=== PATIENT | male | born 1940 | race Caucasian/White ===

== ENCOUNTER → 2016-11-28 | Outpatient (CLI) | payer OTHER, MEDICARE ==
[~2016-11-28] MED LIST: APIX5TAB PO; ATOR10TA9 PO; BIOT25004 PO; CIPR500T87 PO; DUTA1CPM PO; FURO-93 PO; FURO40TA6 PO; GLUC1CAP48 PO; LISI-167 PO; METH4TAB2 PO; METO25TA35 PO; METO50TA82 PO; MULT-717 PO; NAPR500T8 PO; OMEG-118 PO; POTA20TA14 PO
[2016-11-28 08:00] LABS: ASPARTATE AMINO TRANSFERASE 28 U/L (15-37); BLOOD UREA NITROGEN 13 mg/dL (7-18)
== END | disposition home or self-care (01) ==
LOC: LAB 07:27
PROVIDERS: ATTEND Internal Medicine Cardiovascular Disease
DX: E78.2 Mixed hyperlipidemia (principal); I48.2 Chronic atrial fibrillation; N40.0 Benign prostatic hyperplasia without lower urinary tract symptoms
CPT/HCPCS: 36415; 80053; 80061

== ENCOUNTER → 2016-12-23 | Outpatient (CLI) | payer OTHER, MEDICARE ==
[~2016-12-23] MED LIST changes: +REGADENOSON 0.4 MG/5 ML SYRINGE ONE
== END | disposition home or self-care (01) ==
LOC: CFH 12:05
PROVIDERS: ATTEND Internal Medicine Cardiovascular Disease
DX: Z01.810 Encounter for preprocedural cardiovascular examination (principal)
CPT/HCPCS: 78452; 93017; A9502; J2785

== ENCOUNTER → 2017-01-06 | Outpatient (CLI) | payer OTHER, MEDICARE ==
[~2017-01-06] MED LIST changes: +FURO20TA3 PO; +NAPR500T3 PO; -REGADENOSON 0.4 MG/5 ML SYRINGE ONE
[2017-01-06 09:30] LABS: PATH.CAST-FLAG NOT PRESENT; SPERM-FLAG NOT PRESENT; SRC-FLAG NOT PRESENT; XTAL-FLAG NOT PRESENT; YLC-FLAG NOT PRESENT
[2017-01-06 09:42] LABS: ASPARTATE AMINO TRANSFERASE 54 U/L (15-37); BLOOD UREA NITROGEN 13 mg/dL (7-18)
== END | disposition home or self-care (01) ==
LOC: STAR 07:31
PROVIDERS: ATTEND Neurological Surgery
DX: Z01.818 Encounter for other preprocedural examination (principal); J90 Pleural effusion, not elsewhere classified; I10 Essential (primary) hypertension; M47.12 Other spondylosis with myelopathy, cervical region
CPT/HCPCS: 36415; 71020; 80053; 81003; 85025; 85610; 85730

== ENCOUNTER → 2017-01-18 | Outpatient (CLI) | payer OTHER, MEDICARE | END | disposition home or self-care (01) | LOC: CFH 09:17 | PROVIDERS: ATTEND Internal Medicine | DX: J90 Pleural effusion, not elsewhere classified (principal); J98.11 Atelectasis; Z98.890 Other specified postprocedural states | CPT/HCPCS: 71020 ==

== ENCOUNTER 2017-02-17 05:40 | Inpatient (IN) | payer OTHER, MEDICARE ==
[~2017-02-17] VITALS: Ht 175.3 cm; Wt 74.2 kg
[2017-02-17] MEDS ORDERED: LACTATED RINGERS 1,000 ML IV SCH (06:30)
[2017-02-17 06:31] VITALS: BP 150/88
[2017-02-17] MEDS ORDERED: THROMBIN 5,000 UNIT VIAL TP ONE (06:58)
[2017-02-17] MEDS ORDERED: BACITRACIN 50,000 UNIT ONE (06:58)
[2017-02-17] MEDS ORDERED: VANCOMYCIN 1,000 MG ONE (06:58)
[2017-02-17] MEDS ORDERED: BUPIVACAINE/PF-EPI 0.5% 1:200K ONE (06:58)
[2017-02-17] MEDS ORDERED: FENTANYL PF 100 MCG/2ML ONE ×2 (07:04)
[2017-02-17] MEDS ORDERED: MIDAZOLAM 1 MG/ML, 2ML ONE (07:04)
[2017-02-17] MEDS ORDERED: REMIFENTANIL 2 MG ONE (07:04)
[2017-02-17] MEDS ORDERED: BUPIVACAINE/PF-EPI 0.5% 1:200K INFIL ONE (09:11)
[2017-02-17] MEDS ORDERED: METOPROLOL 1 MG/ML, 5ML IV PRN (09:30)
[2017-02-17] MEDS ORDERED: hydrALAzine 20 MG/ML, 1ML IV PRN (09:30)
[2017-02-17] MEDS ORDERED: MEPERIDINE/PF 25MG/0.5ML IVPush PRN (09:30)
[2017-02-17] MEDS ORDERED: ONDANSETRON 2MG/ML, 2ML IVPush PRN (09:30)
[2017-02-17] MEDS ORDERED: ACETAMINOPHEN 325 MG TABLET PO PRN (09:30)
[2017-02-17] MEDS ORDERED: EPHEDRINE 50 MG/ML, 1ML IVPush PRN (09:30)
[2017-02-17] MEDS ORDERED: HYDROcodone/APAP 7.5-325MG/15ML UDC PO PRN (09:30)
[2017-02-17] MEDS ORDERED: FENTANYL PF 100 MCG/2ML IV PRN (09:30)
[2017-02-17] MEDS ORDERED: HYDROmorphone 1 MG/ML, 1ML IV PRN (09:30)
[2017-02-17] MEDS ORDERED: PROMETHAZINE 25 MG/ML, 1ML IV PRN (09:30)
[2017-02-17] MEDS ORDERED: OXYcodone 5 MG/5 ML ORAL.SOL UDC PO PRN (09:30)
[2017-02-17] MEDS ORDERED: ALBUTEROL SULFATE 2.5 MG/3 ML NPPB PRN (09:30)
[2017-02-17] MEDS ORDERED: LABETALOL 5MG/ML, 20ML IV PRN ×2 (09:30→14:30)
[2017-02-17] MEDS ORDERED: HYDROmorphone 1 MG/ML, 1ML ONE (12:42)
[2017-02-17] MEDS ORDERED: HYDROcodone/APAP 7.5-325MG/15ML UDC ONE (12:43)
[2017-02-17] MEDS ORDERED: hydrALAzine 20 MG/ML, 1ML ONE (12:56)
[2017-02-17] MEDS ORDERED: DIPHENHYDRAMINE 50 MG CAPSULE PO PRN (14:30)
[2017-02-17] MEDS ORDERED: HYDROcodone/APAP 10/325 MG TABLET PO PRN (14:30)
[2017-02-17] MEDS ORDERED: PROMETHAZINE 25 MG/ML, 1ML IM PRN (14:30)
[2017-02-17] MEDS ORDERED: MAGNESIUM HYDROXIDE 8%, 30ML UDC PO PRN (14:30)
[2017-02-17] MEDS ORDERED: ONDANSETRON 2MG/ML, 2ML IV PRN (14:30)
[2017-02-17] MEDS ORDERED: METHOCARBAMOL 750 MG TABLET PO PRN (14:30)
[2017-02-17] MEDS ORDERED: BISACODYL 10 MG SUPP PR PRN (14:30)
[2017-02-17] MEDS ORDERED: morphine SULFATE 10 MG/ML, 1ML IV PRN (14:30)
[2017-02-17] MEDS ORDERED: DIPHENHYDRAMINE 50 MG/ML, 1ML IVPush PRN (14:30)
[2017-02-17] MEDS ORDERED: DIPHENHYDRAMINE 50 MG/ML, 1ML IM PRN (14:30)
[2017-02-17 14:36] VITALS: BP 132/98
[2017-02-17] MEDS: NS + 20MEQ KCL 1,000 ML IV SCH (15:16)
[2017-02-17] MEDS ORDERED: HYDROmorphone 2 MG/ML, 1ML IVPush PRN (16:00)
[2017-02-17] MEDS ORDERED: HYDROmorphone 2MG TABLET PO PRN (16:00)
[2017-02-17] MEDS ORDERED: DEXAMETHASONE 4 MG/ML, 1ML ONE (16:36)
[2017-02-17] MEDS ORDERED: SUCCINYLCHOLINE 20 MG/ML, 10ML ONE (16:36)
[2017-02-17] MEDS ORDERED: ROCURONIUM 10 MG/ML ONE (16:36)
[2017-02-17] MEDS ORDERED: PROPOFOL 10 MG/ML, 20ML ONE (16:36)
[2017-02-17] MEDS ORDERED: PROPOFOL 10 MG/ML, 50ML ONE (16:36)
[2017-02-17] MEDS ORDERED: CEFAZOLIN 1,000 MG ONE (16:36)
[2017-02-17] MEDS: CEFAZOLIN PMX 1GM/50ML 50 ML IVPB SCH (17:01)
[2017-02-17] MEDS ORDERED: DIAZEPAM 5 MG TABLET PO PRN (17:30)
[2017-02-17] MEDS ORDERED: CYCLOBENZAPRINE 10 MG TABLET PO PRN (17:30)
[2017-02-17] MEDS: ATORVASTATIN 10 MG TABLET PO SCH (20:40)
[2017-02-17] MEDS: HYDROcodone/APAP 5/325 TABLET PO PRN (22:35)
[2017-02-18] MEDS: CEFAZOLIN PMX 1GM/50ML 50 ML IVPB SCH (00:13)
[2017-02-18] MEDS: NS + 20MEQ KCL 1,000 ML IV SCH ×3 (00:30→20:30)
[2017-02-18] MEDS: HYDROcodone/APAP 5/325 TABLET PO PRN ×2 (02:10→22:10)
[2017-02-18 04:00] VITALS: BP 112/60
[2017-02-18 04:31] LABS: HEMATOCRIT 30.7 % (39.2-51.8); HEMOGLOBIN 10.1 g/dL (13.7-18.0); WHITE BLOOD COUNT 8.8 x10^3/uL (3.4-10)
[2017-02-18 04:41] LABS: BLOOD UREA NITROGEN 15 mg/dL (7-18)
[2017-02-18] MEDS: SENNA/DOCUSATE TABLET PO SCH (09:00)
[2017-02-18] MEDS: DUTASTERIDE 0.5 MG CAPSULE PO SCH (09:04)
[2017-02-18] MEDS: TAMSULOSIN 0.4 MG CAP.ER.24H PO SCH (09:04)
[2017-02-18] MEDS: FUROSEMIDE 20 MG TABLET PO SCH (09:05)
[2017-02-18] MEDS: LISINOPRIL 10 MG TABLET PO SCH (09:05)
[2017-02-18] MEDS: METOPROLOL TARTRATE 50 MG TABLET PO SCH (09:05)
[2017-02-18 13:15] VITALS: BP 120/71
[2017-02-18 19:59] VITALS: BP 131/75
[2017-02-18] MEDS: ATORVASTATIN 10 MG TABLET PO SCH (21:38)
[2017-02-19 01:00] VITALS: BP 129/62
[2017-02-19 05:18] LABS: HEMOGLOBIN 10.2 g/dL (13.7-18.0); WHITE BLOOD COUNT 6.8 x10^3/uL (3.4-10)
[2017-02-19 05:19] LABS: BLOOD UREA NITROGEN 16 mg/dL (7-18)
[2017-02-19 07:29] VITALS: BP 114/70
[2017-02-19] MEDS: TAMSULOSIN 0.4 MG CAP.ER.24H PO SCH (09:35)
[2017-02-19] MEDS: NS + 20MEQ KCL 1,000 ML IV SCH (09:35)
[2017-02-19] MEDS: DUTASTERIDE 0.5 MG CAPSULE PO SCH (09:35)
[2017-02-19] MEDS: METOPROLOL TARTRATE 50 MG TABLET PO SCH (09:36)
[2017-02-19] MEDS: LISINOPRIL 10 MG TABLET PO SCH (09:36)
[2017-02-19] MEDS: FUROSEMIDE 20 MG TABLET PO SCH (09:36)
[2017-02-19] MEDS: SENNA/DOCUSATE TABLET PO SCH (09:36)
[2017-02-19] MEDS ORDERED: SENN1TAB7 PO (11:30)
[2017-02-19] MEDS ORDERED: HYDR-3240 PO (11:32)
[2017-02-19] MEDS: HYDROcodone/APAP 5/325 TABLET PO PRN (13:09)
== END 2017-02-19 13:31 | disposition home or self-care (01) | DRG 472 ==
LOC: ORIP 05:40 → ICU 13:41 → 4NOR 02-18 13:01 → DCLOUNGE 02-19 09:33 → 4NOR 02-19 09:48
PROVIDERS: ADMIT Neurological Surgery; ATTEND Neurological Surgery
PROC: 0RG10K1 Fusion of Cervical Vertebral Joint with Nonautologous Tissue Substitute, Posterior Approach, Posterior Column, Open Approach (ICD-10-PCS; 2017-02-17)
PROC: 0RB30ZZ Excision of Cervical Vertebral Disc, Open Approach (ICD-10-PCS; 2017-02-17)
PROC: 00NW0ZZ Release Cervical Spinal Cord, Open Approach (ICD-10-PCS; principal; 2017-02-17 07:30)
DX: M48.02 Spinal stenosis, cervical region (principal); I50.32 Chronic diastolic (congestive) heart failure; I48.2 Chronic atrial fibrillation; I11.0 Hypertensive heart disease with heart failure; M47.12 Other spondylosis with myelopathy, cervical region; E78.5 Hyperlipidemia, unspecified; G47.33 Obstructive sleep apnea (adult) (pediatric); N40.0 Benign prostatic hyperplasia without lower urinary tract symptoms; Z79.01 Long term (current) use of anticoagulants; Z82.49 Family history of ischemic heart disease and other diseases of the circulatory system; Z87.891 Personal history of nicotine dependence
CPT/HCPCS: 36415; 72040; 72125; 80048; 85025; 86850; 86900; 87081; 88305; 95938; 95941; C1713; J0690; J1100; J1170; J2250; J2704; J3010; J3370; J3480; C1762; J0330; J7120

== ENCOUNTER → 2017-03-22 | Outpatient (CLI) | payer OTHER, MEDICARE ==
[~2017-03-22] MED LIST changes: -BIOT25004 PO; +BIOT25005 PO; +HYDR-3240 PO; +SENN1TAB7 PO
== END | disposition home or self-care (01) ==
LOC: CFH 08:42
PROVIDERS: ATTEND Registered Nurse
DX: M47.13 Other spondylosis with myelopathy, cervicothoracic region (principal); M25.78 Osteophyte, vertebrae
CPT/HCPCS: 72040

== ENCOUNTER → 2017-05-03 | Outpatient (CLI) | payer OTHER, MEDICARE ==
[2017-05-01 08:46] LABS: BLOOD UREA NITROGEN 11 mg/dL (7-18)
[~2017-05-03] MED LIST changes: -NAPR500T3 PO; +NAPR500T4 PO; +OMNIPAQUE 350 MG/ML, 100ML BOTTLE ONE
== END | disposition home or self-care (01) ==
LOC: CFH 10:56
PROVIDERS: ATTEND Nurse Practitioner Family
DX: J90 Pleural effusion, not elsewhere classified (principal); R31.0 Gross hematuria
CPT/HCPCS: 74170; Q9967; 36415; 82565; 84520

== ENCOUNTER → 2017-07-21 | Outpatient (CLI) | payer OTHER, MEDICARE ==
[~2017-07-21] MED LIST changes: -OMNIPAQUE 350 MG/ML, 100ML BOTTLE ONE
== END | disposition home or self-care (01) ==
LOC: CFH 13:18
PROVIDERS: ATTEND Registered Nurse
DX: J90 Pleural effusion, not elsewhere classified (principal)
CPT/HCPCS: 71250

== ENCOUNTER → 2017-07-26 | Outpatient (CLI) | payer OTHER, MEDICARE ==
[2017-07-26 08:27] LABS: ALANINE AMINOTRANSFERASE 27 U/L (12-78); ALBUMIN 3.6 g/dL (3.4-5.0); ANION GAP 7 mmol/L (5-15); CALCIUM 9.1 mg/dL (8.5-10.1); CHLORIDE 95 mmol/L (98-107); CREATININE 1.21 mg/dL (0.7-1.3)
[2017-07-26 08:44] LABS: ALKALINE PHOSPHATASE 106 U/L (45-117); BILIRUBIN,TOTAL 0.7 mg/dL (0.2-1.0); TOTAL PROTEIN 7.2 g/dL (6.4-8.2)
== END | disposition home or self-care (01) ==
LOC: LAB 08:03
PROVIDERS: ATTEND Physician Assistant
DX: I11.0 Hypertensive heart disease with heart failure (principal); I50.9 Heart failure, unspecified; E78.2 Mixed hyperlipidemia; Z79.01 Long term (current) use of anticoagulants
CPT/HCPCS: 36415; 80053; 83880

== ENCOUNTER 2017-08-03 14:51 | Emergency (ER) | payer OTHER, MEDICARE ==
[~2017-08-03] VITALS: Ht 177.8 cm; Wt 80.0 kg
[2017-08-03] MEDS ORDERED: SODIUM CHLORIDE 0.9% 1,000ML IVBOLUS ONE (15:30)
[2017-08-03 15:34] LABS: BASOPHILS # (AUTO) 0.02 x10^3/uL (0-0.1); BASOPHILS % (AUTO) 0 % (0-1); EOSINOPHILS # (AUTO) 0.18 x10^3/uL (0-0.4); EOSINOPHILS % (AUTO) 3 % (1-7); LYMPHOCYTES # (AUTO) 1.39 x10^3/uL (1-3.4); LYMPHOCYTES % (AUTO) 22 % (22-44); MD NO; MEAN CORPUSCULAR HEMOGLOBIN 26.1 pg (27.5-34.5); MEAN CORPUSCULAR HGB CONC 33.2 g/dL (33.2-36.2); MEAN CORPUSCULAR VOLUME 78.6 fL (81-97); MONOCYTES # (AUTO) 0.58 x10^3/uL (0.2-0.8); MONOCYTES % (AUTO) 9 % (2-9); NEUTROPHILS # (AUTO) 4.16 x10^3/uL (1.8-6.8); NEUTROPHILS % (AUTO) 66 % (42-75); PLATELET COUNT 298 x10^3/uL (130-400); RED BLOOD COUNT 4.02 x10^6/uL (4.38-5.82); RED CELL DISTRIBUTION WIDTH 16.3 % (9.4-14.8)
[2017-08-03 15:46] LABS: ALBUMIN 3.4 g/dL (3.4-5.0); ANION GAP 11 mmol/L (5-15); CALCIUM 8.5 mg/dL (8.5-10.1); CHLORIDE 95 mmol/L (98-107)
[2017-08-03 15:51] LABS: ALANINE AMINOTRANSFERASE 21 U/L (12-78); ALKALINE PHOSPHATASE 83 U/L (45-117); BILIRUBIN,TOTAL 0.3 mg/dL (0.2-1.0); TOTAL PROTEIN 6.7 g/dL (6.4-8.2); TROPONIN I 0.037 ng/mL (0.000-0.045)
[2017-08-03 18:29] VITALS: BP 115/62
== END 2017-08-03 18:31 | disposition home or self-care (01) ==
LOC: ED 17:27
DX: R06.00 Dyspnea, unspecified (principal); R42 Dizziness and giddiness; J15.9 Unspecified bacterial pneumonia; E86.0 Dehydration; I10 Essential (primary) hypertension; I48.91 Unspecified atrial fibrillation; I50.9 Heart failure, unspecified; E87.1 Hypo-osmolality and hyponatremia; Z87.891 Personal history of nicotine dependence
CPT/HCPCS: 36415; 71045; 80053; 83880; 84484; 85025; 93005; 99285; J7030

== ENCOUNTER → 2017-08-10 | Outpatient (CLI) | payer OTHER, MEDICARE | END | disposition home or self-care (01) | LOC: CFH 10:34 | PROVIDERS: ATTEND Neurological Surgery | DX: M50.03 Cervical disc disorder with myelopathy, cervicothoracic region (principal); M47.12 Other spondylosis with myelopathy, cervical region | CPT/HCPCS: 72050 ==

== ENCOUNTER → 2017-09-13 | Outpatient (CLI) | payer OTHER, MEDICARE ==
[~2017-09-13] MED LIST changes: +NAPR-685 PO; -NAPR500T4 PO
[2017-09-13 09:56] LABS: ALANINE AMINOTRANSFERASE 23 U/L (12-78); ALBUMIN 3.7 g/dL (3.4-5.0); ANION GAP 9 mmol/L (5-15); CALCIUM 8.5 mg/dL (8.5-10.1); CHLORIDE 100 mmol/L (98-107); CREATININE 1.03 mg/dL (0.7-1.3)
[2017-09-13 10:00] LABS: ALKALINE PHOSPHATASE 79 U/L (45-117); BILIRUBIN,TOTAL 0.5 mg/dL (0.2-1.0); TOTAL PROTEIN 6.4 g/dL (6.4-8.2)
== END ==
LOC: LAB 09:30
PROVIDERS: ATTEND Physician Assistant
DX: I48.2 Chronic atrial fibrillation (principal); I50.32 Chronic diastolic (congestive) heart failure
CPT/HCPCS: 36415; 80053; 83880

== ENCOUNTER 2017-11-03 09:55 | Day surgery (SDC) | payer MEDICARE, OTHER ==
[~2017-11-03] VITALS: Ht 175.3 cm; Wt 81.8 kg
[2017-11-03 11:22] VITALS: BP 133/74
[2017-11-03] MEDS ORDERED: APIX5TAB PO (11:40)
[2017-11-03] MEDS ORDERED: OMEG1CAP24 PO (11:40)
[2017-11-03] MEDS ORDERED: LISI5TAB7 PO (11:40)
[2017-11-03] MEDS ORDERED: POTA10TA12 PO (11:40)
[2017-11-03] MEDS ORDERED: DIPHENHYDRAMINE 50 MG/ML, 1ML ONE (11:44)
[2017-11-03 11:46] LABS: BASOPHILS # (AUTO) 0.04 x10^3/uL (0-0.1); BASOPHILS % (AUTO) 1 % (0-1); EOSINOPHILS # (AUTO) 0.16 x10^3/uL (0-0.4); EOSINOPHILS % (AUTO) 3 % (1-7); LYMPHOCYTES # (AUTO) 0.78 x10^3/uL (1-3.4); LYMPHOCYTES % (AUTO) 14 % (22-44); MD NO; MEAN CORPUSCULAR HEMOGLOBIN 23.9 pg (27.5-34.5); MEAN CORPUSCULAR HGB CONC 31.6 g/dL (33.2-36.2); MEAN CORPUSCULAR VOLUME 75.8 fL (81-97); MEAN PLATELET VOLUME 6.6 fL (7.4-10.4); MONOCYTES # (AUTO) 0.42 x10^3/uL (0.2-0.8); MONOCYTES % (AUTO) 8 % (2-9); NEUTROPHILS # (AUTO) 4.05 x10^3/uL (1.8-6.8); NEUTROPHILS % (AUTO) 74 % (42-75); PLATELET COUNT 268 x10^3/uL (130-400); RED BLOOD COUNT 3.55 x10^6/uL (4.38-5.82)
[2017-11-03] MEDS ORDERED: LIDOCAINE 2%, 2ML ONE (12:18)
== END 2017-11-03 14:46 | disposition home or self-care (01) ==
LOC: CACL 09:55
PROVIDERS: ATTEND Internal Medicine Cardiovascular Disease
DX: I50.32 Chronic diastolic (congestive) heart failure (principal); I48.91 Unspecified atrial fibrillation; I11.0 Hypertensive heart disease with heart failure; Z87.891 Personal history of nicotine dependence; G47.33 Obstructive sleep apnea (adult) (pediatric)
CPT/HCPCS: 36415; 85025; 93306; 93451; C1769; J1200; J3490

== ENCOUNTER 2018-06-03 10:42 | Inpatient (IN) | payer MEDICARE, OTHER ==
[2018-06-03] VITALS (10 sets, daily range): BP systolic 102–147; BP diastolic 58–82
[~2018-06-03] VITALS: Ht 175.3 cm; Wt 85.9 kg
[~2018-06-03 10:42] MED LIST changes: +LISI5TAB7 PO; +OMEG1CAP24 PO; +POTA10TA12 PO; -SENN1TAB7 PO; +SENN1TAB8 PO
[2018-06-03] MEDS ORDERED: SODIUM CHLORIDE FLUSH 10ML SYR IVF ONE (11:30)
[2018-06-03] MEDS ORDERED: DUTA0.5C15 PO (11:38)
[2018-06-03 12:05] LABS: ALANINE AMINOTRANSFERASE 28 U/L (12-78); ALBUMIN 3.1 g/dL (3.4-5.0); ANION GAP 11 mmol/L (5-15); CALCIUM 8.1 mg/dL (8.5-10.1); CHLORIDE 95 mmol/L (98-107); CREATININE 0.98 mg/dL (0.7-1.3)
[2018-06-03 12:09] LABS: ALKALINE PHOSPHATASE 79 U/L (45-117); BILIRUBIN,TOTAL 0.8 mg/dL (0.2-1.0); TOTAL PROTEIN 5.9 g/dL (6.4-8.2); TROPONIN I 0.091 ng/mL (0.000-0.045)
[2018-06-03 12:32] LABS: BASOPHILS # (AUTO) 0.06 x10^3/uL (0-0.1); BASOPHILS % (AUTO) 1 % (0-1); EOSINOPHILS # (AUTO) 0.03 x10^3/uL (0-0.4); EOSINOPHILS % (AUTO) 0 % (1-7); LYMPHOCYTES # (AUTO) 0.67 x10^3/uL (1-3.4); LYMPHOCYTES % (AUTO) 6 % (22-44); MD SCAN; MEAN CORPUSCULAR HEMOGLOBIN 30.1 pg (27.5-34.5); MEAN CORPUSCULAR HGB CONC 34.1 g/dL (33.2-36.2); MEAN CORPUSCULAR VOLUME 88.3 fL (81-97); MEAN PLATELET VOLUME 6.7 fL (7.4-10.4); MONOCYTES # (AUTO) 1.32 x10^3/uL (0.2-0.8); MONOCYTES % (AUTO) 13 % (2-9); NEUTROPHILS # (AUTO) 8.47 x10^3/uL (1.8-6.8); NEUTROPHILS % (AUTO) 80 % (42-75); PLATELET COUNT 296 x10^3/uL (130-400); RED BLOOD COUNT 2.46 x10^6/uL (4.38-5.82); RED CELL DISTRIBUTION WIDTH 15.1 % (9.4-14.8)
[2018-06-03] MEDS ORDERED: OMNIPAQUE 350 MG/ML, 100ML BOTTLE ONE (12:44)
[2018-06-03] MEDS ORDERED: POTASSIUM CHLORIDE 20 MEQ TAB.ER.PRT ONE (12:45)
[2018-06-03] MEDS ORDERED: POTASSIUM CHLORIDE 20 MEQ TAB.ER.PRT PO ONE (13:00)
[2018-06-03] MEDS ORDERED: NS + 20MEQ KCL 1,000 ML IV SCH (13:59)
[2018-06-03] MEDS ORDERED: HYDROcodone/APAP 5/325 TABLET PO PRN (14:00)
[2018-06-03] MEDS ORDERED: ONDANSETRON 2MG/ML, 2ML IVPush PRN (14:00)
[2018-06-03] MEDS ORDERED: GUAIFENESIN/COD200MG-20MG/10ML LIQUID PO PRN (14:00)
[2018-06-03] MEDS ORDERED: DOCUSATE 100 MG CAPSULE PO PRN (14:00)
[2018-06-03] MEDS ORDERED: ACETAMINOPHEN 325 MG TABLET PO PRN (14:00)
[2018-06-03] MEDS ORDERED: morphine SULFATE 10 MG/ML, 1ML IVPush PRN (14:00)
[2018-06-03] MEDS ORDERED: POLYETHYLENE GLYCOL 17 GM PACKET PO PRN (14:00)
[2018-06-03] MEDS ORDERED: ALBUTEROL SULFATE 2.5 MG/3 ML ONE (16:15)
[2018-06-03] MEDS: ALBUTEROL SULFATE 2.5 MG/3 ML NPPB SCH ×2 (19:00→21:25)
[2018-06-03] MEDS: FUROSEMIDE 20 MG TABLET PO SCH (19:25)
[2018-06-03] MEDS ORDERED: FUROSEMIDE 40 MG/4 ML IV ONE (19:30)
[2018-06-03] MEDS: POTASSIUM CHLORIDE 10 MEQ TABLET.ER PO SCH (20:52)
[2018-06-03] MEDS: ATORVASTATIN 10 MG TABLET PO SCH (20:52)
[2018-06-03] MEDS ORDERED: TEMPLATE NON-FORMULARY MED. (Gluc 2KCL/Chondr/Coll Hy/Hy Ac** (Glucosamine & Chondroitin C PO SCH (21:00)
[2018-06-04 01:16] VITALS: BP 144/79
[2018-06-04] MEDS: ALBUTEROL SULFATE 2.5 MG/3 ML NPPB SCH ×6 (03:00→23:01)
[2018-06-04 05:22] LABS: MEAN CORPUSCULAR HEMOGLOBIN 30.8 pg (27.5-34.5); MEAN CORPUSCULAR HGB CONC 34.7 g/dL (33.2-36.2); MEAN CORPUSCULAR VOLUME 88.7 fL (81-97); MEAN PLATELET VOLUME 6.8 fL (7.4-10.4); PLATELET COUNT 264 x10^3/uL (130-400); RED BLOOD COUNT 3.26 x10^6/uL (4.38-5.82); RED CELL DISTRIBUTION WIDTH 14.7 % (9.4-14.8)
[2018-06-04 05:26] LABS: ANION GAP 9 mmol/L (5-15); CALCIUM 7.5 mg/dL (8.5-10.1); CHLORIDE 94 mmol/L (98-107); CREATININE 0.84 mg/dL (0.7-1.3)
[2018-06-04 05:55] LABS: BASOPHILS # (AUTO) 0.07 x10^3/uL (0-0.1); BASOPHILS % (AUTO) 1 % (0-1); EOSINOPHILS # (AUTO) 0.18 x10^3/uL (0-0.4); EOSINOPHILS % (AUTO) 2 % (1-7); LYMPHOCYTES # (AUTO) 1.02 x10^3/uL (1-3.4); LYMPHOCYTES % (AUTO) 12 % (22-44); MD SCAN; MONOCYTES # (AUTO) 1.47 x10^3/uL (0.2-0.8); MONOCYTES % (AUTO) 17 % (2-9); NEUTROPHILS # (AUTO) 5.81 x10^3/uL (1.8-6.8); NEUTROPHILS % (AUTO) 68 % (42-75)
[2018-06-04 08:18] VITALS: BP 146/84
[2018-06-04] MEDS ORDERED: BIOTIN 10000 MCG PO SCH (09:00)
[2018-06-04] MEDS: POTASSIUM CHLORIDE 10 MEQ TABLET.ER PO SCH ×2 (10:24→20:27)
[2018-06-04] MEDS: METOPROLOL TARTRATE 50 MG TABLET PO SCH (10:24)
[2018-06-04] MEDS: SENNA/DOCUSATE TABLET PO SCH (10:24)
[2018-06-04] MEDS: LISINOPRIL 10 MG TABLET PO SCH (10:24)
[2018-06-04] MEDS: MULTIVITAMIN 1 TABLET PO SCH (10:24)
[2018-06-04] MEDS: FUROSEMIDE 20 MG TABLET PO SCH (10:25)
[2018-06-04] MEDS: DUTASTERIDE 0.5 MG CAPSULE PO SCH (10:25)
[2018-06-04 12:50] LABS: BASOPHILS # (AUTO) 0.02 x10^3/uL (0-0.1); BASOPHILS % (AUTO) 0 % (0-1); EOSINOPHILS # (AUTO) 0.37 x10^3/uL (0-0.4); EOSINOPHILS % (AUTO) 4 % (1-7); LYMPHOCYTES # (AUTO) 1.12 x10^3/uL (1-3.4); LYMPHOCYTES % (AUTO) 12 % (22-44); MD NO; MEAN CORPUSCULAR HEMOGLOBIN 29.4 pg (27.5-34.5); MEAN CORPUSCULAR HGB CONC 32.8 g/dL (33.2-36.2); MEAN CORPUSCULAR VOLUME 89.6 fL (81-97); MEAN PLATELET VOLUME 6.1 fL (7.4-10.4); MONOCYTES # (AUTO) 1.43 x10^3/uL (0.2-0.8); MONOCYTES % (AUTO) 16 % (2-9); NEUTROPHILS # (AUTO) 6.19 x10^3/uL (1.8-6.8); NEUTROPHILS % (AUTO) 68 % (42-75); PLATELET COUNT 308 x10^3/uL (130-400); RED BLOOD COUNT 3.43 x10^6/uL (4.38-5.82); RED CELL DISTRIBUTION WIDTH 14.5 % (9.4-14.8)
[2018-06-04 14:30] VITALS: BP 153/98
[2018-06-04 14:36] LABS: TROPONIN I 0.078 ng/mL (0.000-0.045)
[2018-06-04] MEDS: FUROSEMIDE 20 MG/2 ML IV SCH (20:27)
[2018-06-04] MEDS: ATORVASTATIN 10 MG TABLET PO SCH (20:27)
[2018-06-04 20:59] LABS: MEAN CORPUSCULAR HEMOGLOBIN 30.8 pg (27.5-34.5); MEAN CORPUSCULAR HGB CONC 34.8 g/dL (33.2-36.2); MEAN CORPUSCULAR VOLUME 88.5 fL (81-97); MEAN PLATELET VOLUME 6.6 fL (7.4-10.4); PLATELET COUNT 308 x10^3/uL (130-400); RED BLOOD COUNT 3.51 x10^6/uL (4.38-5.82); RED CELL DISTRIBUTION WIDTH 14.8 % (9.4-14.8)
[2018-06-04 21:15] VITALS: BP 198/127
[2018-06-04 21:28] LABS: BASOPHILS % (AUTO) 0 % (0-1); EOSINOPHILS % (AUTO) 7 % (1-7); LYMPHOCYTES # (AUTO) 1.98 x10^3/uL (1-3.4); LYMPHOCYTES % (AUTO) 17 % (22-44); MD SCAN; MONOCYTES # (AUTO) 1.85 x10^3/uL (0.2-0.8); MONOCYTES % (AUTO) 16 % (2-9); NEUTROPHILS # (AUTO) 6.86 x10^3/uL (1.8-6.8); NEUTROPHILS % (AUTO) 60 % (42-75)
[2018-06-04 21:29] LABS: BASOPHILS # (AUTO) 0.05 x10^3/uL (0-0.1); EOSINOPHILS # (AUTO) 0.77 x10^3/uL (0-0.4)
[2018-06-04 23:08] VITALS: BP 151/74
[2018-06-05 00:54] VITALS: BP 160/92
[2018-06-05 05:47] LABS: ANION GAP 11 mmol/L (5-15); CALCIUM 8.4 mg/dL (8.5-10.1); CHLORIDE 94 mmol/L (98-107); CREATININE 0.87 mg/dL (0.7-1.3)
[2018-06-05 06:00] LABS: MEAN CORPUSCULAR HEMOGLOBIN 30.4 pg (27.5-34.5); MEAN CORPUSCULAR VOLUME 89.5 fL (81-97); MEAN PLATELET VOLUME 6.8 fL (7.4-10.4); PLATELET COUNT 307 x10^3/uL (130-400); RED CELL DISTRIBUTION WIDTH 15.2 % (9.4-14.8)
[2018-06-05 06:44] LABS: BASOPHILS # (AUTO) 0.07 x10^3/uL (0-0.1); BASOPHILS % (AUTO) 1 % (0-1); EOSINOPHILS # (AUTO) 0.64 x10^3/uL (0-0.4); EOSINOPHILS % (AUTO) 5 % (1-7); LYMPHOCYTES # (AUTO) 0.85 x10^3/uL (1-3.4); LYMPHOCYTES % (AUTO) 7 % (22-44); MD SCAN; MONOCYTES # (AUTO) 1.22 x10^3/uL (0.2-0.8); MONOCYTES % (AUTO) 10 % (2-9); NEUTROPHILS # (AUTO) 9.14 x10^3/uL (1.8-6.8); NEUTROPHILS % (AUTO) 77 % (42-75)
[2018-06-05] MEDS: ALBUTEROL SULFATE 2.5 MG/3 ML NPPB SCH ×3 (06:57→14:20)
[2018-06-05 07:32] VITALS: BP 156/99
[2018-06-05] MEDS: MULTIVITAMIN 1 TABLET PO SCH (08:35)
[2018-06-05] MEDS: POTASSIUM CHLORIDE 10 MEQ TABLET.ER PO SCH (08:36)
[2018-06-05] MEDS: SENNA/DOCUSATE TABLET PO SCH (08:36)
[2018-06-05] MEDS: FUROSEMIDE 20 MG/2 ML IV SCH (08:36)
[2018-06-05] MEDS: DUTASTERIDE 0.5 MG CAPSULE PO SCH (08:36)
[2018-06-05] MEDS: METOPROLOL TARTRATE 50 MG TABLET PO SCH (08:36)
[2018-06-05] MEDS: LISINOPRIL 10 MG TABLET PO SCH (08:36)
[2018-06-05 11:52] LABS: TROPONIN I 0.075 ng/mL (0.000-0.045)
[2018-06-05 12:14] VITALS: BP 143/83
== END 2018-06-05 15:42 | disposition home or self-care (01) | DRG 555 ==
LOC: ED 12:05 → EDIP 12:42 → 4EST 14:08
PROVIDERS: ADMIT Hospitalist; ATTEND Family Medicine
PROC: 30233N1 Transfusion of Nonautologous Red Blood Cells into Peripheral Vein, Percutaneous Approach (ICD-10-PCS; principal; 2018-06-03)
DX: M79.81 Nontraumatic hematoma of soft tissue (principal); J96.20 Acute and chronic respiratory failure, unspecified whether with hypoxia or hypercapnia; D62 Acute posthemorrhagic anemia; D68.69 Other thrombophilia; E78.00 Pure hypercholesterolemia, unspecified; E78.5 Hyperlipidemia, unspecified; E87.6 Hypokalemia; G47.33 Obstructive sleep apnea (adult) (pediatric); I11.0 Hypertensive heart disease with heart failure; I48.2 Chronic atrial fibrillation; I50.9 Heart failure, unspecified; J44.9 Chronic obstructive pulmonary disease, unspecified; M19.019 Primary osteoarthritis, unspecified shoulder; G56.00 Carpal tunnel syndrome, unspecified upper limb; N40.0 Benign prostatic hyperplasia without lower urinary tract symptoms; Z66 Do not resuscitate; Z79.01 Long term (current) use of anticoagulants; Z87.891 Personal history of nicotine dependence; Z96.611 Presence of right artificial shoulder joint; Z96.612 Presence of left artificial shoulder joint; Z96.641 Presence of right artificial hip joint; Z96.652 Presence of left artificial knee joint; Z98.1 Arthrodesis status; X58.XXXA Exposure to other specified factors, initial encounter; Y93.9 Activity, unspecified; Y92.89 Other specified places as the place of occurrence of the external cause; Y99.8 Other external cause status; T45.515A Adverse effect of anticoagulants, initial encounter
CPT/HCPCS: 36415; 71045; 71275; 74177; 80048; 80053; 82040; 83605; 83735; 83880; 84484; 85014; 85018; 85025; 86850; 86900; 86923; 87040; 87070; 87205; 93005; 93306; 94640; 99285; G0378; J1940; J3480; J7613; Q9967; P9016

== ENCOUNTER 2018-06-07 10:15 | Day surgery (SDC) | payer MEDICARE, OTHER ==
[~2018-06-07] VITALS: Ht 175.3 cm; Wt 79.3 kg
[~2018-06-07 10:15] MED LIST changes: +DUTA0.5C15 PO
[2018-06-07] MEDS ORDERED: LACTATED RINGERS 1,000 ML IV SCH (10:34)
[2018-06-07 10:35] VITALS: BP 122/76
[2018-06-07] MEDS ORDERED: PLEASE ENTER HEIGHT AND WEIGHT MC SCH (11:00)
[2018-06-07] MEDS ORDERED: FENTANYL PF 100 MCG/2ML ONE (12:29)
[2018-06-07] MEDS ORDERED: ONDANSETRON 2MG/ML, 2ML ONE (12:44)
[2018-06-07] MEDS ORDERED: DEXAMETHASONE 4 MG/ML, 1ML ONE (12:44)
[2018-06-07] MEDS ORDERED: PROPOFOL 10 MG/ML, 20ML ONE (12:44)
[2018-06-07] MEDS ORDERED: FENTANYL PF 100 MCG/2ML IV PRN (13:30)
[2018-06-07] MEDS ORDERED: DIPHENHYDRAMINE 50 MG/ML, 1ML IVPush PRN (13:30)
[2018-06-07] MEDS ORDERED: hydrALAzine 20 MG/ML, 1ML IV PRN (13:30)
[2018-06-07] MEDS ORDERED: LABETALOL 5MG/ML, 20ML IV PRN (13:30)
[2018-06-07] MEDS ORDERED: ALBUTEROL/IPRATROPIUM 2.5MG/0.5MG, 3 ML NPPB PRN (13:30)
[2018-06-07] MEDS ORDERED: EPINEPHRINE SYRINGE 0.1 MG/ML, 10ML ONE (15:03)
== END 2018-06-07 15:30 | disposition home or self-care (01) ==
LOC: OUT 10:15
PROVIDERS: ATTEND Internal Medicine
DX: K63.5 Polyp of colon (principal); D12.2 Benign neoplasm of ascending colon; E78.5 Hyperlipidemia, unspecified; I10 Essential (primary) hypertension; G47.33 Obstructive sleep apnea (adult) (pediatric); J44.9 Chronic obstructive pulmonary disease, unspecified; I48.91 Unspecified atrial fibrillation
CPT/HCPCS: 45385; 88305; A4648; J1100; J2405; J2704; J3010; J7120

== ENCOUNTER 2018-07-27 08:51 | Emergency (ER) | payer MEDICARE, OTHER ==
[~2018-07-27] VITALS: Ht 175.3 cm; Wt 170.0 kg
--- NOTE | 2018-07-27 10:37 | NUR ---
PT. IS A & O X 4 WITH C/O RIGHT HIP PAIN AFTER FALLING A WEEK AGO. PT. IS AMBULATORY WITH PAIN. CMS CHECKS ARE INTACT. PT. IS RESTING WITH THE HOB ELEVATED GREATER THAN 30 DEGREES. PT. HAS THE CALLL LIGHT IN PLACE. SIDERAILS ARE UP X 2.
[2018-07-27 11:59] VITALS: BP 145/73
--- NOTE | 2018-07-27 12:00 | NUR ---
THIS FLOAT RN AT BEDSIDE TO RELIEVE PRIMARY RN FOR BREAK. PT VSS. PT REQUESTING PAIN MEDS BEFORE DC. MADE AWARE. AWAITING FURTHER ORDERS.
[2018-07-27] MEDS ORDERED: IBUPROFEN 600 MG TABLET ONE (12:02)
[2018-07-27] MEDS ORDERED: IBUPROFEN 200 MG TABLET PO ONE ×2 (12:30)
== END 2018-07-27 12:20 | disposition home or self-care (01) ==
LOC: ED 10:17
DX: S76.111A Strain of right quadriceps muscle, fascia and tendon, initial encounter (principal); I48.91 Unspecified atrial fibrillation; I11.0 Hypertensive heart disease with heart failure; I50.9 Heart failure, unspecified; G56.00 Carpal tunnel syndrome, unspecified upper limb; W18.11XA Fall from or off toilet without subsequent striking against object, initial encounter; Y93.89 Activity, other specified; Y92.091 Bathroom in other non-institutional residence as the place of occurrence of the external cause; Y99.8 Other external cause status
CPT/HCPCS: 99284

== ENCOUNTER → 2018-08-17 | Outpatient (CLI) | payer MEDICARE, OTHER | END | disposition home or self-care (01) | LOC: CFH 09:36 | PROVIDERS: ATTEND Registered Nurse | DX: J90 Pleural effusion, not elsewhere classified (principal); J96.11 Chronic respiratory failure with hypoxia; I51.7 Cardiomegaly | CPT/HCPCS: 71046 ==

== ENCOUNTER → 2019-01-02 | Outpatient (CLI) | payer MEDICARE, OTHER ==
[~2019-01-02] MED LIST changes: +SENN-177 PO; -SENN1TAB8 PO
[2019-01-02 13:01] LABS: ALBUMIN 3.5 g/dL (3.4-5.0); ANION GAP 6 mmol/L (5-15); CALCIUM 8.7 mg/dL (8.5-10.1); CHLORIDE 106 mmol/L (98-107)
[2019-01-02 13:04] LABS: ALANINE AMINOTRANSFERASE 28 U/L (12-78); ALKALINE PHOSPHATASE 99 U/L (45-117); BILIRUBIN,TOTAL 0.6 mg/dL (0.2-1.0); CHOL/HDL RATIO 2.4; CHOLESTEROL, TOTAL 117 mg/dL (140-239); CREATININE 0.85 mg/dL (0.7-1.3); HDL CHOL % 42 % (26-37); HDL CHOLESTEROL (DIRECT) 49 mg/dL (40-60); LDL CHOLESTEROL,CALCULATED 53 mg/dL (54-169); LDL/HDL RATIO 1.1 (0.5-3.0); TOTAL PROTEIN 6.6 g/dL (6.4-8.2); TRIGLYCERIDES 74 mg/dL (50-200); VLDL CHOLESTEROL 15 mg/dL (0-25)
== END | disposition home or self-care (01) ==
LOC: CFH 07:30
PROVIDERS: ATTEND Internal Medicine Cardiovascular Disease
DX: E78.2 Mixed hyperlipidemia (principal); D50.9 Iron deficiency anemia, unspecified; I10 Essential (primary) hypertension; I48.91 Unspecified atrial fibrillation; I50.33 Acute on chronic diastolic (congestive) heart failure; J93.11 Primary spontaneous pneumothorax
CPT/HCPCS: 36415; 80053; 80061

== ENCOUNTER 2019-02-10 10:23 | Outpatient (CLI) | payer MEDICARE, OTHER | END 2019-02-10 23:59 | disposition home or self-care (01) | LOC: STAR 10:23 | PROVIDERS: ATTEND Internal Medicine | DX: Z01.818 Encounter for other preprocedural examination (principal); K63.5 Polyp of colon; R94.31 Abnormal electrocardiogram [ECG] [EKG] | CPT/HCPCS: 93005 ==

== ENCOUNTER 2019-02-14 05:40 | Day surgery (SDC) | payer MEDICARE, OTHER ==
[~2019-02-14] VITALS: Ht 172.7 cm; Wt 72.8 kg
[2019-02-14 06:35] VITALS: BP 129/85
== END 2019-02-14 10:15 | disposition home or self-care (01) ==
LOC: OUT 05:40
PROVIDERS: ATTEND Internal Medicine
DX: Z09 Encounter for follow-up examination after completed treatment for conditions other than malignant neoplasm (principal); K64.8 Other hemorrhoids; K63.89 Other specified diseases of intestine; J44.9 Chronic obstructive pulmonary disease, unspecified; I48.91 Unspecified atrial fibrillation; I50.9 Heart failure, unspecified; Z86.010 Personal history of colon polyps
CPT/HCPCS: 45380; 88305; J2704; J7120

== ENCOUNTER → 2019-08-01 | Outpatient (CLI) | payer MEDICARE ==
[~2019-08-01] MED LIST changes: +ATORVASTATIN; +DUTASTERIDE; +FERR324T5 PO; +LASIX; +LISINOPRIL; +MELA5TAB10 SL; +METOPROLOL; +POTASSIUM
== END | disposition home or self-care (01) ==
LOC: CVU 09:13
PROVIDERS: ATTEND Internal Medicine Cardiovascular Disease
DX: I73.9 Peripheral vascular disease, unspecified (principal); E78.5 Hyperlipidemia, unspecified; I10 Essential (primary) hypertension; I48.0 Paroxysmal atrial fibrillation; Z87.891 Personal history of nicotine dependence
CPT/HCPCS: 93922

== ENCOUNTER 2019-09-05 13:59 | Outpatient (CLI) | payer MEDICARE ==
[~2019-09-05 13:59] MED LIST changes: -DUTA0.5C15 PO; +DUTA0.5C16 PO
== END 2019-09-05 23:59 | disposition home or self-care (01) ==
LOC: CFH 13:59
PROVIDERS: ATTEND Registered Nurse
DX: J90 Pleural effusion, not elsewhere classified (principal); J98.11 Atelectasis
CPT/HCPCS: 71045

== ENCOUNTER → 2021-02-17 | Outpatient (CLI) | payer MEDICARE ==
[~2021-02-17] MED LIST changes: -DUTA0.5C16 PO; +DUTA0.5C36 PO; +HYDR-2214 PO; -HYDR-3240 PO; +HYDR25SU3 PR
[2021-02-17 10:34] LABS: ALANINE AMINOTRANSFERASE 26 U/L (12-78); ALBUMIN 3.3 g/dL (3.4-5.0); CHOLESTEROL, TOTAL 109 mg/dL (140-239)
[2021-02-17 10:36] LABS: ALKALINE PHOSPHATASE 113 U/L (45-117); BILIRUBIN,TOTAL 0.8 mg/dL (0.2-1.0); CHOL/HDL RATIO 2.5; HDL CHOL % 39 % (26-37); HDL CHOLESTEROL (DIRECT) 43 mg/dL (40-60); LDL CHOLESTEROL,CALCULATED 53 mg/dL (54-169); LDL/HDL RATIO 1.2 (0.5-3.0); TOTAL PROTEIN 6.7 g/dL (6.4-8.2); TRIGLYCERIDES 63 mg/dL (50-200); VLDL CHOLESTEROL 13 mg/dL (0-25)
[2021-02-17 10:41] LABS: ANION GAP 6 mmol/L (5-15); CHLORIDE 105 mmol/L (98-107)
== END | disposition home or self-care (01) ==
LOC: LAB 10:06
PROVIDERS: ATTEND Internal Medicine Cardiovascular Disease
DX: E78.2 Mixed hyperlipidemia (principal); I10 Essential (primary) hypertension
CPT/HCPCS: 36415; 80053; 80061